=== PATIENT | female | born 1970 | race Caucasian/White ===

== ENCOUNTER 2021-05-11 18:38 | Emergency (ER) | payer MEDICAID ==
[~2021-05-11] VITALS: Ht 175.3 cm; Wt 77.1 kg
[2021-05-11] MEDS ORDERED: ACETAMINOPHEN 500 MG TABLET PO ONE (20:00)
[2021-05-11] MEDS ORDERED: PROMETHAZINE HCL 25 MG TABLET PO ONE (20:00)
[2021-05-11 21:43] LABS: BASOPHILS % (AUTO) 1.2 % (0.0-2.0); EOSINOPHILS % (AUTO) 1.2 % (1.0-6.0); HEMATOCRIT 36.7 % (36-46); HEMOGLOBIN 11.9 g/dL (12.0-16.0); LYMPHOCYTES # (AUTO) 1.4 K/uL (1.0-4.8); LYMPHOCYTES % (AUTO) 23.3 % (22.0-44.0); MEAN CORPUSCULAR HEMOGLOBIN 27.9 pg (26.0-34.0); MEAN CORPUSCULAR HGB CONC 32.3 G/dL (31.0-37.0); MEAN CORPUSCULAR VOLUME 86 fL (80-100); MONOCYTES # (AUTO) 0.6 K/uL (0.1-1.0); MONOCYTES % (AUTO) 9.5 % (2.0-9.0); NEUTROPHILS # (AUTO) 3.8 K/uL (1.8-7.7); NEUTROPHILS % (AUTO) 64.8 % (40.0-70.0); PLATELET COUNT (AUTO) 249 K/uL (150-450); RED BLOOD CELL COUNT(AUTO) 4.25 MIL/uL (4.00-5.20)
[2021-05-11 21:54] LABS: CALCIUM, TOTAL 9.5 mg/dL (8.8-10.5); CREATININE 1.44 mg/dL (0.60-1.30); POTASSIUM 3.2 mmol/L (3.5-5.1)
[2021-05-11] MEDS ORDERED: TraMADol HCL 50 MG TABLET PO ONE (22:30)
[2021-05-11 23:20] VITALS: BP 93/69
== END 2021-05-11 23:30 | disposition home or self-care (01) ==
LOC: EMS 18:41
DX: R07.89 Other chest pain (principal); R11.2 Nausea with vomiting, unspecified; Z98.890 Other specified postprocedural states
CPT/HCPCS: 71045; 80048; 84484; 85025; 85379; 93005; 99285; 36415-L1; 36415-TC